=== PATIENT | female | born 1980 | race Caucasian/White ===

== ENCOUNTER 2021-08-27 12:55 | Emergency (ER) | payer OTHER ==
[~2021-08-27] VITALS: Ht 160 cm; Wt 63.0 kg
[2021-08-27 13:00] VITALS: BP 148/79
--- NOTE | 2021-08-27 13:08 | NUR ---
PATIENT AMBULATED TO BED4.
--- NOTE | 2021-08-27 13:58 | NUR ---
PT TAKEN TO XRAY VIA [facility]
--- NOTE | 2021-08-27 13:58 | NUR ---
41/F PRESENTS TO ED WITH C/O CHEST PAIN X5 YEARS, WORSENING IN THE PAST WEEK. PATIENT STATES PAIN IS RIGHT SIDED CHEST RADIATING TO RIGHT SHOULDER. REPORTS 7/10 ACHING PAIN THAT WORSENS WITH MOVEMENT AND TOUCH, DENIES INJURY OR TRAUMA. 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 DENIES FEVER, CHILLS, CP, SOB, N/V/D OR URINARY SYMPTOMS.
[2021-08-27] MEDS: LIDOCAINE 5% 1 EA PATCH TP SCH (14:23)
[2021-08-27] MEDS: ACETAMINOPHEN 325 MG TAB PO ONE (14:23)
[2021-08-27 14:24] LABS: BASOPHILS # (AUTO) 0.1 K/uL (0.00-0.22); BASOPHILS % (AUTO) 0.8 % (0.0-2.0); EOSINOPHILS # (AUTO) 0.2 K/uL (0-0.4); EOSINOPHILS % (AUTO) 2.2 % (0.0-4.0); HEMATOCRIT 39.1 % (36-48); HEMOGLOBIN 13.2 g/dL (12.0-16.0); LYMPHOCYTES # (AUTO) 1.9 K/uL (2.5-16.5); LYMPHOCYTES % (AUTO) 22.8 % (20.5-51.1); MEAN CORPUSCULAR HEMOGLOBIN 29 pg (27-31); MEAN CORPUSCULAR HGB CONC 34 g/dL (33-37); MEAN CORPUSCULAR VOLUME 85.9 fL (80-94); MONOCYTES # (AUTO) 0.6 K/uL (0.8-1.0); NEUTROPHILS # (AUTO) 5.6 K/uL (1.8-7.7); NEUTROPHILS % (AUTO) 67.2 % (42.2-75.2); PLATELET COUNT (AUTO) 271 K/uL (140-450); RED BLOOD CELL COUNT(AUTO) 4.55 MIL/uL (4.20-5.40); RED CELL DISTRIBUTION WIDTH 14.1 % (11.6-13.7); WHITE BLOOD COUNT (AUTO) 8.4 K/uL (4.8-10.8)
[2021-08-27 14:43] LABS: ALBUMIN 3.9 g/dL (3.4-5.0); ANION GAP 12.5 (8-16); CARBON DIOXIDE 27.1 mmol/L (21-32); CREATININE 0.7 mg/dL (0.6-1.3); POTASSIUM 3.6 mmol/L (3.5-5.1); TOTAL BILIRUBIN 0.4 mg/dL (0.0-1.0)
[2021-08-27] MEDS: KETOROLAC 15 MG/ML VIAL IM ONE (15:47)
[2021-08-27] MEDS: ONDANSETRON 4 MG ODT PO ONE (15:53)
[2021-08-27] MEDS ORDERED: LID5T TP (16:19)
[2021-08-27 16:31] VITALS: BP 136/76
--- NOTE | 2021-08-27 16:32 | NUR ---
Patient discharged with v/s stable. Written and verbal after care instructions given and explained. Patient alert, oriented and verbalized understanding of instructions. Ambulatory with steady gait. All questions addressed prior to discharge. ID band removed. Patient advised to follow up with PMD. Rx of LIDODERM PATCH given. Patient educated on indication of medication including possible reaction and side effects. Opportunity to ask questions provided and answered.
[2021-08-28] MEDS ORDERED: LIDOCAINE 5% 1 EA PATCH TP SCH (09:00)
== END 2021-08-27 16:32 | disposition home or self-care (01) ==
LOC: MED 12:55
DX: R07.89 Other chest pain (principal); M25.511 Pain in right shoulder; Z79.899 Other long term (current) drug therapy
CPT/HCPCS: 36415; 71045; 73030; 80053; 84484; 85025; 93005; 96372; 99285; J1885; Q0162